=== PATIENT | male | born 1990 | race Caucasian/White ===

== ENCOUNTER → 2019-01-15 | Outpatient (CLI) | payer BC | END | disposition home or self-care (01) | LOC: CFH 15:33 | PROVIDERS: ATTEND Nurse Practitioner Primary Care | DX: R59.0 Localized enlarged lymph nodes (principal); R10.32 Left lower quadrant pain; R10.31 Right lower quadrant pain | CPT/HCPCS: 76857 ==

== ENCOUNTER 2019-03-30 16:24 | Emergency (ER) | payer BC ==
[~2019-03-30] VITALS: Ht 170.2 cm; Wt 64.4 kg
[2019-03-30] MEDS ORDERED: SODIUM CHLORIDE FLUSH 10ML SYR IVF ONE (18:00)
--- NOTE | 2019-03-30 18:17 | NUR ---
PT HERE FOR ABD PAIN. PT REPORTS NEW ONSET A FEW DAYS AGO. PT DENIES TRUAMA. PT REPORTS NORMAL STOOLS. PT CONCERNED IT MAY BE A HERNIA. PT CONNECTED TO MONITORS AND CALL LIGHT IN REACH. AWAITIN FURTHER ORDERS.
[2019-03-30 18:21] LABS: BASOPHILS # (AUTO) 0.01 x10^3/uL (0-0.1); BASOPHILS % (AUTO) 0 % (0-1); EOSINOPHILS # (AUTO) 0.07 x10^3/uL (0-0.4); EOSINOPHILS % (AUTO) 1 % (1-7); LYMPHOCYTES # (AUTO) 2.05 x10^3/uL (1-3.4); LYMPHOCYTES % (AUTO) 32 % (22-44); MD NO; MEAN CORPUSCULAR HEMOGLOBIN 31.4 pg (27.5-34.5); MEAN CORPUSCULAR HGB CONC 33.8 g/dL (33.2-36.2); MEAN CORPUSCULAR VOLUME 92.8 fL (81-97); MEAN PLATELET VOLUME 10.6 fL (7.4-10.4); MONOCYTES # (AUTO) 0.52 x10^3/uL (0.2-0.8); MONOCYTES % (AUTO) 8 % (2-9); NEUTROPHILS # (AUTO) 3.67 x10^3/uL (1.8-6.8); NEUTROPHILS % (AUTO) 58 % (42-75); PLATELET COUNT 217 x10^3/uL (130-400); RED BLOOD COUNT 5.12 x10^6/uL (4.38-5.82); RED CELL DISTRIBUTION WIDTH 12.1 % (9.4-14.8)
[2019-03-30 18:33] LABS: ALBUMIN 3.9 g/dL (3.4-5.0); ANION GAP 15 mmol/L (5-15); CALCIUM 9.1 mg/dL (8.5-10.1); CHLORIDE 103 mmol/L (98-107); CREATININE 0.92 mg/dL (0.7-1.3)
[2019-03-30] MEDS ORDERED: OMNIPAQUE 350 MG/ML, 100ML BOTTLE ONE (19:17)
[2019-03-30 19:55] VITALS: BP 125/69
--- NOTE | 2019-03-30 19:55 | NUR ---
Patient/Caregiver given discharge instructions and they have confirmed that they understand the instructions. Patient ambulatory with steady gait.
--- NOTE | 2019-03-30 20:06 | NUR ---
FIRST CONTACT. DEBORAH DICKINSON IS DISCHARGING THE PT. FOR THE PRIMARY CARE RN MALIKA Stallworth PT. WAS GIVEN DISCHARGE INSTRUCTIONS AND A SCRIPT WITH UNDERSTANDING VERBALIZED ALONG WITH WILLINGNESS TO COMPLY. PT.'S IV WAS DCD',CATH TIP INTACT. PRESSURE HELD WITH HEMOSTASIS ACHIEVED. PT. WAS AMBULATORY TO THE DISCHARGE DESK. VSS.
== END 2019-03-30 20:07 ==
LOC: ED 20:00
DX: K59.00 Constipation, unspecified (principal); R73.9 Hyperglycemia, unspecified; K40.90 Unilateral inguinal hernia, without obstruction or gangrene, not specified as recurrent; Z90.89 Acquired absence of other organs
CPT/HCPCS: 36415; 74177; 80048; 82040; 83605; 85025; 99284; Q9967